=== PATIENT | female | born 1970 ===

== ENCOUNTER → 2022-03-21 | Emergency (ER) | payer OTHER ==
[~2022-03-21] VITALS: Ht 167.6 cm; Wt 86.2 kg
[~2022-03-21] MED LIST: SYNTHROID125 MCG
== END | disposition designated cancer center or children's hospital (05) ==
LOC: ER 20:31
DX: T17.208A Unspecified foreign body in pharynx causing other injury, initial encounter (principal); X58.XXXA Exposure to other specified factors, initial encounter; Y93.9 Activity, unspecified; Y92.9 Unspecified place or not applicable; Y99.9 Unspecified external cause status; Z20.822 Contact with and (suspected) exposure to COVID-19